=== PATIENT | male | born 1960 | race Two or more races ===

== ENCOUNTER 2024-01-26 07:07 | Day surgery (SDC) | payer OTHER ==
[2024-01-26] MEDS ORDERED: ONDANSETRON HCL 2 MG/ML VIAL IV ONE (13:00)
[2024-01-26] MEDS ORDERED: fentaNYL CITRATE 50 MCG/ML AMPUL IV PUSH ONE (13:00)
[2024-01-26] MEDS ORDERED: MIDAZOLAM HCL 2 MG/2 ML VIAL IV ONE (13:00)
[2024-01-26] MEDS ORDERED: DIPHENHYDRAMINE HCL 50 MG/ML VIAL 1ML IV ONE (13:00)
== END 2024-01-26 14:10 | disposition home or self-care (01) ==
LOC: AMB-ENDOS 07:07
PROVIDERS: ATTEND Colon & Rectal Surgery
DX: K62.1 Rectal polyp (principal); K52.838 Other microscopic colitis; K63.5 Polyp of colon; K57.30 Diverticulosis of large intestine without perforation or abscess without bleeding